=== PATIENT | male | born 1975 | race Caucasian/White ===

== ENCOUNTER 2023-05-12 15:11 | Outpatient (CLI) | payer OTHER, SELFPAY ==
--- NOTE | ~2023-05-12 | CT_ITS ---
EXAMINATION: CT soft tissue neck w con DATE: 05/12/2023 15:45 INDICATION: Right neck mass. Cervical lymphadenopathy. TECHNIQUE: Computed tomography (CT) of the neck was performed with 75 mL Omnipaque-350 intravenous co ntrast. Automated exposure control and iterative reconstruction technique were employed. The dose-brenton gth product was 660.86 mGy-cm. COMPARISON: None FINDINGS: There is mild scarring at the lung apices. There are no pathologically enlarged lymph nodes . The cervical carotid arteries are normal. There is mucosal thickening in the paranasal sinuses. The mastoid air cells are normal. There is moderate cervical spondylosis. IMPRESSION: 1. No abnormal neck mass or lymphadenopathy. Reviewed, dictated and finalized at location E.
== END 2023-05-12 15:12 | disposition home or self-care (01) ==
PROVIDERS: PCP Nurse Practitioner Family; Visit Provider Nurse Practitioner Family
DX: R22.1 Localized swelling, mass and lump, neck (principal)
CPT/HCPCS: 70491; Q9967